=== PATIENT | male | born 1970 | race Caucasian/White ===

== ENCOUNTER → 2017-05-20 13:11 | Day surgery (SDC) | payer OTHER ==
--- NOTE | 2017-05-07 19:40 | HP ---
PREOPERATIVE HISTORY AND PHYSICAL: DATE OF SURGERY: 05/20/17 [facility] ATTENDING SURGEON: Pardeep Oliva MD * (DICTATED BY JAIR VOSS) PROCEDURE: Right shoulder arthroscopic labral repair, decompression, subpectoral biceps tenodesis. CHIEF COMPLAINT: Right shoulder pain. HISTORY OF PRESENT ILLNESS: Chaparro is a 46-year-old male who presents to the clinic for right shoulder pain after a work related injury on 02/17/17. 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 Now he continues to have pain and catching anteriorly. He has failed conservative measures and therefore, agreed to undergo a right shoulder arthroscopic labral repair, decompression, subpectoral biceps tenodesis with Dr. Oliva on 05/20/17. PAST MEDICAL HISTORY: No current problems. PAST SURGICAL HISTORY: Left shoulder surgery in 2010, hernia repair in 1998, and deviated septum. The patient denies prior complications with anesthesia. MEDICATIONS: No active medications. ALLERGIES: No known drug allergies. FAMILY HISTORY: Denies pertinent family history. SOCIAL HISTORY: He lives with his spouse. He denies tobacco or alcohol use. He denies illegal drug use. He is right hand dominant. REVIEW OF SYSTEMS: A 14-point review of systems was reviewed with the patient. Positive for current complaint, otherwise negative. Denies chest pain or shortness of breath. Denies fever or chills, history of DVT or PE, history of bleeding disorder. PHYSICAL EXAMINATION GENERAL: A 46-year-old well-developed, well-nourished male in no acute distress. Alert and oriented x3. Appropriate mood and affect. HEENT: Normocephalic, atraumatic. PERRLA. Throat clear. NECK: Supple. PULMONARY: Lungs clear to auscultation bilaterally. No wheezing, rhonchi or rales. CARDIO: Regular rate and rhythm. S1, S2. No murmurs, gallops or rubs. No edema. ABDOMEN: Positive bowel sounds, soft, nontender. MUSCULOSKELETAL: Full range of motion with some pain. +5/5 strength on rotator cuff testing. 1-2+ anterior glide, Positive apprehension relocation test. Nontender to palpation. +2 radial pulse. Sensation intact to light touch distally. NEUROLOGIC: Alert and oriented x3. Cranial nerves are grossly intact. Sensation is intact to light touch, right upper extremity. SKIN: Intact. No warmth or erythema. STUDIES: MR arthrogram revealed anterior labral tear with a small Hill-Sachs lesion, as well as articular surface tearing in the supraspinatus tendon and biceps tendinitis. IMPRESSION: Right shoulder labral tear and biceps tendinitis. PLAN: The patient is scheduled to undergo a right shoulder arthroscopic labral repair, decompression, subpectoral biceps tenodesis with Dr. Oliva on . He will follow up in clinic in 10 to 14 days postop for followup and suture removal. Scripts for Percocet and Keflex were sent to the patient's pharmacy for postop pain management and antibiotic prophylaxis. JAIR VOSS [id number]/[facility] #: [id number] MTDNuzhat
[~2017-05-20 13:11] MED LIST: Acetaminophen TAB* 325 MG PO PRN; Buffered Lidocaine 0.9% SYRIN* 5 ML/SYR SYRINGE INTRADERM ONE; Bupivacaine 0.25% SDV* 30 ML ONE; Dexamethasone IV* 4 MG/ML 1 ML (4 MG) ONE; DiMENhydriNATE IV* 50 MG/ML VIAL IV PUSH PRN; Famotidine IV* 10 MG/ML 2 ML (20 mg) ONE; HYDROmorphone INJ* 1 MG/ML CARPUJECT SYRINGE IV PRN; Ketorolac INJ* 30 MG/ML 1 ML VIAL ONE; Lidocaine 2% PF * 5 ML VIAL ONE; Midazolam* 1 MG/ML 2 ML VIAL (2 MG) ONE; Ondansetron INJ* 2 MG/ML VIAL IV PRN; Ondansetron INJ* 2 MG/ML VIAL ONE; Propofol* 10 MG/ML 20 ML BTL IV PUSH ONE; ROPIVACAINE 5 MG/ML 30 ML BTL (0.5%) ONE; ceFAZolin 1 GM VIAL(*) ONE; ceFAZolin 2 GM PREMIX (*) 2 GM/50 ML BAG IVPB ONE; fentaNYL* 50 MCG/ML 2 ML VIAL (100 MCG VIAL) IV PRN; fentaNYL* 50 MCG/ML 2 ML VIAL (100 MCG VIAL) ONE; oxyCODONE TAB* 5 MG TAB PO PRN
[2017-05-20 20:24] VITALS: BP 115/81
--- NOTE | 2017-05-26 02:50 | OP ---
OPERATIVE REPORT: DATE OF OPERATION: 05/20/17 DATE OF : 72 SURGEON: Pardeep Oliva MD. MANAGER PROFESSIONAL DEVELOPMENT: JAIR Angel. PRE-OP DIAGNOSIS: Right shoulder instability with bicipital tendinitis. POST-OP DIAGNOSIS: Right shoulder instability with bicipital tendinitis. OPERATIVE PROCEDURE: Right shoulder arthroscopy with: 1. Extensive glenohumeral debridement with chondroplasty. 2. Anterior labral repair. 3. Subpectoral biceps tenodesis. IMPLANTS USED: Three 2.9 Bioraptors and one 2.8 mm Q-Fix. COMPLICATIONS: None. ESTIMATED BLOOD LOSS: Minimal. 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 Then , he noticed a dislocation of the shoulder and lot of pain anterolaterally. He had a similar issue on his contralateral side. He had persistent pain and instability. MRI demonstrated a labral tear as well as anterior and superior labral tears. Risks and benefits of surgery versus nonoperative treatment were discussed at length and included but are not limited to bleeding, infection, damage to nerves, vessels, surrounding structures, wound nonhealing, persistent pain, need for further surgery, scarring, stiffness, incomplete relief of symptoms, and risks of anesthesia. DESCRIPTION OF PROCEDURE: The patient was greeted in the preoperative area by the attending surgeon. The correct extremity was marked and consent was confirmed. The patient was then brought back to the operating suite, where he was placed in supine position. He underwent interscalene nerve block by the anesthesiologist. He then underwent general anesthesia and endotracheal intubation, after which he was placed in the left lateral decubitus position with an axillary roll. All bony prominences were padded. He was secured with a pegboard and his shoulder was draped with about 12 pounds of traction. The right shoulder was prepped and draped in the usual sterile fashion, beginning with chlorhexidine soap, scrub, and alcohol wipe and a final prep with ChloraPrep. After appropriate surgical pause indicating side, site, procedure, and administration of antibiotics, the standard posterolateral portal was made sharply with #11 blade. The scope was introduced into the joint. The joint was examined. There was abundant erythema, hyperemia and synovitic tissue in the shoulder. The biceps had obvious superior labral tearing. There was a moderate sized Hill-Sachs lesion with unstable flaps. There was a small area where there was a GLAD lesion at the level of the labral tear. The labrum was torn from the 3 o'clock to the 6 o'clock position with a moderate sized unstable flap. The undersurface of the subscap was intact. There was abundant synovitis in that interval. A low anterior portal was made and an 8 mm cannula was placed and then superiorly in the interval, a second 5-mm cannula was placed. The biceps was then taken through range of motion and tenotomized, debrided back. The labrum was then prepared beginning at the 3 o'clock position all the way down to the 6 o'clock position. It was carefully elevated with the elevator. The glenoid portion was then rasped with a small ball rasp. It was then prepared with a small red ball rasp as well as the shaver. The capsule was also prepared with a double-sided rasp. Once the glenoid was prepared, anchor placement began. First anchor was placed at around the 5:30 position and was placed with excellent purchase. Sutures were passed in a horizontal mattress configuration to allow for an inferosuperior capsular shift as well as adventist of labrum. The biceps was then tenotomized. The undersurface of the rotator cuff was examined and found to be intact. Once that anchor was passed, a second anchor was placed at the 4:30 position with excellent purchase. The sutures were passed in horizontal mattress configuration and tied down using arthroscopic knot tying. Third anchor was placed around the 3 o'clock position in a simple fashion. These anchors helped restore the shoulder to fit more appropriately in the head. There was no forward anterior subluxation and it eliminated the drivethrough sign. The labrum was examined posteriorly and found to be intact with mild fraying. At this point, the gold awl was then used to do bone marrow aspiration to allow for further improvement. A chondroplasty of the glenoid as well as the humeral head was then done using the shaver to remove the unstable flaps. Once this was completed, all fluid and debris was removed from the intraarticular space and attention was directed to the biceps. The bed was airplaned to the right side. The anterior aspect of the shoulder was prepped again with a ChloraPrep and #15 blade was used to make an incision in line with biceps tendon encompassing the inferior two-thirds of the pec. The soft tissues were carefully dissected using Metzenbaum scissors until the fascia was identified. The pec was then identified and retracted proximally and the remainder of the dissection was done bluntly. The bicipital groove was palpated. The biceps sheath was then incised and biceps was brought through the wound and was found to have abundant synovitis and erythema. The bicipital groove was then prepared in the usual fashion with a red ball rasp and osteotome to allow for a good bony bleeding bed. The Q-Fix anchor was then drilled unicortically and deployed with excellent purchase. The sutures were then passed through the biceps 1 cm proximal to the musculotendinous junction and secured with knots. The excess stump was excised. The wounds were copiously irrigated with sterile saline. The portals were closed with 3-0 nylon and the anterior wound was closed with 2-0 Vicryl and 3- 0 Monocryl. Sterile dressings were applied. The anterior wound was injected with 20 cc of 0.25% Marcaine. Sterile dressings were applied. Cryo/Cuff and UltraSling were applied. He was awoken from anesthesia and transferred to the PACU in stable condition. POSTOPERATIVE PLAN: He will be nonweightbearing. He will be in a sling for at least 4 to 5 weeks. He will start physical therapy at 4 weeks. He will be allowed elbow, wrist, and hand range of motion. He will be discharged with pain medications and antibiotics. I will see the patient back in 10 to 14 days. DVT prophylaxis was considered, but deferred due to no previous personal or family history. [id number]/[facility] #: [id number] [facility]
== END | disposition home or self-care (01) ==
LOC: OREAST 13:11
PROVIDERS: ATTEND Orthopaedic Surgery
DX: M25.311 Other instability, right shoulder (principal); M75.21 Bicipital tendinitis, right shoulder; M24.811 Other specific joint derangements of right shoulder, not elsewhere classified; M75.81 Other shoulder lesions, right shoulder; M65.811 Other synovitis and tenosynovitis, right shoulder; G89.18 Other acute postprocedural pain; S43.491A Other sprain of right shoulder joint, initial encounter; W51.XXXA Accidental striking against or bumped into by another person, initial encounter; Y92.9 Unspecified place or not applicable; G47.33 Obstructive sleep apnea (adult) (pediatric)
CPT/HCPCS: C1776; J0690; J1100; J1885; J2250; J2405; J2704; J2795; J3010